=== PATIENT | male | born 1985 | race Caucasian/White ===

== ENCOUNTER 2022-04-04 11:02 | Emergency (ER) | payer MEDICAID, SELFPAY ==
[2022-04-04 11:09] VITALS: BP 128/86; PULSE 84; RESP 18; TEMP 36.9; O2SAT 98
--- OUTSIDE RECORDS SUMMARY | 2022-04-04 11:09 | XMS_ITS ---
Author Name KayodeFelton perea Address [address], [place] [id number] Organization [facility] Address [address], [place] [id number] Care Team Providers Care [employer] Technician Name Role Phone Felton Headley Unavailable [phone] PROBLEMS Type Condition ICD9-CM Code DCP77-VL Code Onset Dates Condition Status SNOMED Code Problem Gall stones K80.20 Active 510047580 Problem Tobacco use Z72.0 Active 383331073 Problem RUQ abdominal pain R10.11 Active [id number] ALLERGIES No Known Allergies ENCOUNTERS Encounter Location Date Diagnosis [facility] Occupational Health Department [address] [place] [id number] Aug, [facility] [address], [place] [id number] Aug, Encounter for screening laboratory testing for COVID-19 virus Z20.822 and Viral syndrome B34.9 [facility] [address], [place] [id number] Jul, [facility] [address] [facility] [address] [place] [id number] June, [facility] [address] [place] [id number] May, [facility] [address] [place] [id number] Apr, Biliary colic K80.50 [facility] [address], [place] [id number] Apr, RUQ abdominal pain R10.11 [facility] [address] [place] [id number] Apr, RUQ abdominal pain R10.11 [facility] [address] [id number] Feb, [facility] [address] [place] [id number] Jan, Encounter for screening laboratory testing for COVID-19 virus Z20.822 [facility] [address] [place] [id number] Dec, [facility] [address] [id number] Aug, [facility] [address] [id number] Aug, RUQ abdominal pain R10.11 ; Gall stones K80.20 ; Tobacco use Z72.0 and Screening for STD (sexually transmitted disease) Z11.3 [facility] [address] [id number] Jul, Biliary colic K80.[address] [id number] Jul, Tobacco use Z72.0 ; Gall stones K80.20 ; RUQ abdominal pain R10.11 and Screening for cardiovascular condition Z13.[address] [id number] Jul, 2020 Gall stones K80.20 and RUQ abdominal pain R10.11 IMMUNIZATIONS No Known Immunizations SOCIAL HISTORY Qualifiers Date Former Smoker REASON FOR REFERRAL FUNCTIONAL STATUS PLAN OF CARE Activity Details VITAL SIGNS Height 72 in 2021-08-15 Height 72 in 2021-05-07 Height 72 in 2021-04-25 Height 72 in 2020-09-05 Height 72 in 2020-07-31 Height 72 in 2020-07-26 Weight 210 lbs 2021-08-15 Weight 210.2 lbs 2021-05-07 Weight 211.6 lbs 2021-04-25 Weight 188 lbs 2020-09-05 Weight 196 lbs 2020-07-31 Weight 196 lb 6 oz lbs 2020-07-26 Temperature 98.3 degrees Fahrenheit Temperature 97.8 degrees Fahrenheit Temperature 97.9 degrees Fahrenheit Heart Rate 81 /min 2021-08-15 Heart Rate 73 /min 2021-05-07 Heart Rate 69 /min 2021-04-25 Heart Rate 63 /min 2020-09-05 Heart Rate 67 /min 2020-07-31 Heart Rate 76 /min 2020-07-26 Oximetry 100 2021-08-15 Oximetry 96 2021-05-07 Oximetry 97 2021-04-25 Oximetry 96 2020-09-05 Oximetry 98 2020-07-31 Oximetry 97 2020-07-26 Respiratory Rate 18 /min 2021-08-15 BMI 28.48 kg/m2 2021-08-15 BMI 28.51 kg/m2 2021-05-07 BMI 28.69 kg/m2 2021-04-25 BMI 25.49 kg/m2 2020-09-05 BMI 26.58 kg/m2 2020-07-31 BMI 26.63 kg/m2 2020-07-26 Blood pressure systolic 144 mm Hg Blood pressure diastolic 85 mm Hg 2021-08 MEDICATIONS Medication Instructions Dosage Frequency Start Date End Date Duration Status IBU 400 MG Orally Three times a day 1 tablet with food or milk as needed 8h Not-Taking PROCEDURES Procedure Date Ordered Result Body Site CORONAVIRUS AG [place] August 15, 2021 [facility] [place] [facility] OUT PT CLINIC COLLECTION FOR SARS COV J shanice 2021 SHAWN -PHONE E/M PHYS/QHP 5-10 MIN Jan 15, 2021 RESULTS Name Result Date Reference Range CBC, WITH AUTO DIFF 2021-08-15 WBC 9.3 4.8-10.8 RBC 5.58 4.70-6.10 HGB 16.5 14.0-18.0 HCT 49.4 42.0-52.0 MCV 88.5 80.0-94.0 MCH 29.6 27.0-31.0 MCHC 33.4 32.0-37.0 RDW-CV 12.3 11.5-14.5 PLT 225 130-400 MPV 10.2 7.4-10.4 NE% 67.9 42.2-75.2 LY% 19.6 20.5-51.1 MO% 11.4 1.7-9.3 EO% 0.5 0.9-2.9 BA% 0.3 0.0-0.8 NE# 6.3 1.4-6.5 LY# 1.8 1.2-3.4 MO# 1.1 0.1-0.6 EO# 0.1 0.0-0.2 BA# 0.0 0.0-0.2 COMPREHENSIVE METABOLIC PROFILE 6 SODIUM 136 134-143 POTASSIUM 3.9 3.5-5.1 CHLORIDE 99 98-111 CO2 27 22-32 CALCIUM 9.1 8.9-10.3 GLUCOSE 116 74-106 BUN 14 8-26 CREATININE 0.95 0.61-1.24 TOTAL BILIRUBIN 0.8 0.3-1.2 TOTAL PROTEIN 8.4 6.5-8.1 ALBUMIN 4.6 3.5-5.0 ALKALINE PHOS 68 38-130 AST 29 15-41 ALT 37 17-63 A/GAP 10.0 3.0-12.0 B/CR 14.7 8.0-20.0 OSMOLARITY 273 275-295 GLOBULIN 3.8 2.3-3.5 A/G 1.2 1.0-2.5 HIV 1/0/2 ANTIBODIES 2021-08-15 HIV1/O/2 Abs,P24Ag NON-REACTIVE NON-REACT NORM COVID 19 (POS) SOFIA2 SARS Ag Flu A Flu B SARS Negative COVID 19 (POS) BinaxNow Ag Card 6 SARS-CoV-2 negative US ABDOMINAL LIMITED 2020-12-15 CULTURE STREP GR A 2020-10-02 STREP SCREEN GR A with REFLE X CULTURE 2020-10-02 STREP A Ag NEGATIVE NEGATIVE COVID 19 LR PCR ([employer]) 2020-10-02 SARS-CoV-2, PCR NOT DETECTED NOT DETECTED SARS-CoV-2 Comment Negative results jame uld not be used as the sole basis for diagnosis, treatment, or other patient management decisions. False negatives should be considered in the context of recent exposures and the presence of clinical signs and symptoms consistent with COVID-19. False negatives may also occur in patients whose viral load is below the limit of detection. An individual without symptoms of COVID-19 and who is not shedding the virus would be expected to have a negative result. CHLAMYDIA/GC by PCR URINE 2020-09-05 C.trach by PCR NOT DETECTED NOT DETECTED N. gonorrhoeae PCR NOT DETECTED NOT DETEC OLGA ATWOOD The patient should n ot have urinated for at least 1 hour prior to specimen collection. Female patients should not cleanse the labial area prior to collecting the specimen. Male patients should not cleanse the tip of the penis prior to collecting the specimen. HIV 1/0/2 ANTIBODIES 2020-09-05 HIV1/O/2 Abs,P24Ag NON-REACTIVE NON-REACT NORM SYPHILIS 2020-09-05 SYPHILIS NON-REACTIVE NON-REACTIVE HEPATITIS PANEL (Hep C Ab, B Ag, B Core IGM, A IGM) 2020-09-05 HEP A IGM ANTIBODY NON-REACTIVE NON-REACT NORM HEP B CORE IgM Ab NON-REACTIVE NON-REACTI VE HEP C IgG ANTIBODY NON-REACTIVE NON-REACT NORM HEP B SURFACE AG NON-REACTIVE NON-REACTIV E CBC, WITH AUTO DIFF 2020-07-16 WBC 6.5 4.8-10.8 RBC 4.81 4.70-6.10 HGB 14.4 14.0-18.0 HCT 43.6 42.0-52.0 MCV 90.6 80.0-94.0 MCH 29.9 27.0-31.0 MCHC 33.0 32.0-37.0 RDW-CV 12.8 11.5-14.5 PLT 256 130-400 MPV 10.5 7.4-10.4 NE% 46.3 42.2-75.2 LY% 38.5 20.5-51.1 MO% 9.9 1.7-9.3 EO% 4.5 0.9-2.9 BA% 0.6 0.0-0.8 NE# 3.0 1.4-6.5 LY# 2.5 1.2-3.4 MO# 0.6 0.1-0.6 EO# 0.3 0.0-0.2 BA# 0.0 0.0-0.2 COMPREHENSIVE METABOLIC PROFILE 6 SODIUM 138 134-143 POTASSIUM 3.7 3.5-5.1 CHLORIDE 104 98-111 CO2 26 22-32 CALCIUM 8.8 8.9-10.3 BUN 14 8-26 CREATININE 0.81 0.61-1.24 TOTAL BILIRUBIN 0.4 0.3-1.2 TOTAL PROTEIN 7.0 6.5-8.1 ALBUMIN 4.2 3.5-5.0 ALKALINE PHOS 51 32-92 AST 18 15-41 ALT 15 17-63 A/GAP 8.0 3.0-12.0 B/CR 17.3 8.0-20.0 OSMOLARITY 277 275-295 GLOBULIN 2.8 2.3-3.5 A/G 1.5 1.0-2.5 LIPASE 2020-07-16 LIPASE 34 18-51 REASON FOR VISIT Blood Work, symptomatic, getting sick every 4 weeks, call [phone], Point of Service COVID 19 Screening, pt states he has sinus pain and headache, pt states he also has nausea and vomitting , pt states his lymph nodes also feel swollen , pt states it has been ongoing for about a year. , NS #1, PC ear clogged/eye twitching, lap. poss. open cholecystectomy, consult for surgery 07/12, Cancel surgery, GS LAPROSCOPIC POSS OPEN CHOLECYSTECTOMY, Reschedule surgery, consult cholelithiasis, referral, PC - internal pain by ribs/hx of gallbladder stones, left msg with service, shawn covid test, Point ofService COVID 19 Screening, results, [facility], LUIS- Patient with ER visit for right upper quadrant pain and was found to have gallstones on ultrasound, so thought to be biliary colic. Labs normal, PC - gallbladder stones, lab/US results - 1calldmitry, TRANSCRIPTION Insurance Providers Health Insurance Type Health Plan Insurance Address Health Plan Insurance Phone Health Plan Insurance Name Health Plan Coverage Dates Member ID Patient Relationship to Subscriber Patient Address Patient Phone Patient Name Patient Date of Subscriber ID Subscriber Name Subscriber Date of Group No [place] [address] [facility] [id number] [place] self Marty Greenwoo d [id number] [place] [address] [facility] [id number] [place] self Marty Greenwoo d [id number] RHC [place]AH[place] ATTN CLAIMS [address] [facility] [id number] RHC AMBETTER barbara salazar [id number]
--- NOTE | 2022-04-04 11:15 | DI.RAD_ITS ---
Exam(s) XR LUMBAR SPINE COMPLETE EXAM: XR LUMBAR SPINE COMPLETE CLINICAL HISTORY: Low Back pain. TECHNIQUE: 2D digital imaging was performed of the lumbar spine. Five images were obtained. AP, la teral, right oblique, left oblique and L5-S1 spot views were obtained. COMPARISON: No exams were available for comparison FINDINGS: BONES: No fracture or destructive lesion. Vertebral bodies are unremarkable. No facet hypertrophy nathanael ntified. DISKS: Intervertebral disc spaces are maintained. ALIGNMENT: Lumbar spinal alignment is within normal limits. No spondylolysis or spondylolisthesis. SOFT TISSUE: Normal. IMPRESSION: Unremarkable radiographs of the lumbar spine. DATA REPOSITORY: RADIATION DOSE DELIVERED:
--- NOTE | 2022-04-04 11:28 | W.ED.GENAD ---
Discharge Plan Disposition Patient Disposition: Home Discharge Details Clinical Impression: Low back strain Primary Care Provider: None,None ED Provider: Jennifer Hernandez Home Meds and New Rx's Prescriptions: No Action No Known Home Meds Discharge Instructions Instructions: Low Back Strain (ED) Additional Instructions: X-rays are within normal limits. I do suspect that you have a musculoskeletal strain. A referral for physical therapy has been given for you you may call to make an appointment. Alternate ice and heat. You may also apply topical medication such as Biofreeze or similar or IcyHot or get lidocaine patches which you can obtain [id number]. You are given 1 here today. Follow up with primary care provider in 3-5 days. Return to ED sooner if any worsening or concerns. Increase oral fluids. You are placed on a care management list to assist you with establishing care with a primary care provider. Please take Tylenol or Ibuprofen with food every 4-6 hours as needed for pain and swelling. Stand Alone Forms: Physical Therapy Referral, Work Release Medical Decision Making 36-year-old male presents to the ER with a chief complaint of lower left lumbar pain which has worsened since squatting down yesterday. He denies any radiation, no loss of bowel or bladder control, denies any saddle anesthesia or numbness to his groin area. He did take 400 of ibuprofen prior to arrival. He denies any dysuria or problems urinating. 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 He denies any other associated symptoms or history. Positive straight leg test on the left, patient does have a stiff gait, left-sided paraspinous tenderness with palpation no midline tenderness crepitus or step-off. Lumbar x-rays ordered and a lidocaine patch. Patient is in agreement with the plan. No red flags such as saddle anesthesia, loss of bowel or bladder control or any other concerns. X-rays are within normal limits. Will refer patient to physical therapy and PCP for further evaluation and work-up if needed. Will discuss home care rest ice, alternate with heat lidocaine patches Tylenol ibuprofen. Will discuss red flags for return. Discussed home care with patient who verbalized understanding. This text was generated using [employer] system, please disregard any oddities of phrase or misspellings. Imaging Data Radiologic Study: Imaging: X-Ray Radiologist's impression: EXAM:? XR LUMBAR SPINE COMPLETE CLINICAL HISTORY: ? Low Back pain.? TECHNIQUE:? 2D digital imaging was performed of the lumbar spine.? Five images were obtained.? AP, lateral, right oblique, left oblique and L5-S1 spot views were obtained. COMPARISON:? No exams were available for comparison FINDINGS: BONES: No fracture or destructive lesion. Vertebral bodies are unremarkable. No facet hypertrophy identified. DISKS: Intervertebral disc spaces are maintained. ALIGNMENT: Lumbar spinal alignment is within normal limits. No spondylolysis or spondylolisthesis. SOFT TISSUE: Normal. IMPRESSION: Unremarkable radiographs of the lumbar spine. HPI General Mode of arrival: ambulatory. Date/Time Provider Initiated Documentation: 04/04/22 11:19. Limitations to Documentation: no limitations. Information obtained by: patient, RN notes reviewed and old records reviewed. HPI Narrative: 36-year-old male presents to the ER with a chief complaint of lower left lumbar pain which has worsened since squatting down yesterday. He denies any radiation, no loss of bowel or bladder control, denies any saddle anesthesia or numbness to his groin area. He did take 400 of ibuprofen prior to arrival. He denies any dysuria or problems urinating. 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 He denies any other associated symptoms or history. Related Data Home Medications Medication Instructions Recorded Confirmed Unknown [No Known Home Meds] 04/04/22 04/04/22 Allergies Allergy/AdvReac Type Severity Reaction Status Date / Time No Known Allergies Allergy Unverified 04/04/22 11:10 General Stated Complaint: Nk/Back Pain LETICIA: 4 Review of Systems Musculoskeletal Musculoskeletal: Denies abnormal gait and Reports back pain (Reports worse in the a.m. after waking) Neurologic Neurologic: Denies abnormal gait PFSH All Active Problems (Updated 04/04/22 @ 12:16 by Jennifer Hernandez NP) Low back strain (Acute) Social History Smoking/Tobacco Use Status: Never Smoking risk assessment performed?: Yes Alcohol Intake: never Drug use: Daily Substance use type: marijuana Exam Const General: cooperative, healthy appearing, comfortable, well developed and well groomed Nutritional Appearance: average body habitus Orientation: alert, awake and oriented x3 Back/Spine/Pelvis Back: no CVA tenderness Cervical Spine: normal cervical lordosis, cervical ROM normal, No cervical spinal tenderness and No step off deformity Thoracic/Lumbar Spine: thoracic and lumbar spine normal to inspection, paraspinal tenderness (left), thoraco-lumbar ROM limited, No thoracic spinal tenderness, No lumbar spinal tenderness and straight leg raise positive (left side) Pelvis: no pain with anterior-posterior compression and no pain with lateral compression Course Vital Signs Vital signs: Vital Signs Temperature 36.9 C 04/04/22 11:09 Pulse 84 04/04/22 11:09 Respiratory Rate 18 04/04/22 11:09 Blood Pressure 128/86 04/04/22 11:09 Pulse Oximetry 98 04/04/22 11:09 Temperature 36.9 C 04/04/22 11:09 Temperature Source Oral 04/04/22 11:09 Pulse 84 04/04/22 11:09 Respiratory Rate 18 04/04/22 11:09 Respiratory Effort Normal, Non-Labored 04/04/22 11:09 Blood Pressure 128/86 04/04/22 11:09 Pulse Oximetry 98 04/04/22 11:09 Oxygen Delivery Method Room Air 04/04/22 11:09 Oxygen Flow Rate 0 04/04/22 11:09 Pain Level 4 04/04/22 11:12
[2022-04-04] MEDS: Lidocaine 5% Patch 1 PATCH TP (11:57)
--- NOTE | 2022-04-04 12:13 | NUR.NOTE ---
Nursing Note: Referral given to Care Management needs PCP, back pain follow up, establish care/ 2 to 3 weeks.
== END 2022-04-04 12:37 | disposition home or self-care (01) ==
PROVIDERS: Emergency Provider Registered Nurse Emergency
DX: S39.012A Strain of muscle, fascia and tendon of lower back, initial encounter (principal); X50.9XXA Other and unspecified overexertion or strenuous movements or postures, initial encounter
CPT/HCPCS: 99283; 72110

== ENCOUNTER 2022-06-24 13:17 | Outpatient (REF) | payer MEDICAID, SELFPAY ==
[2022-06-25 10:20] LABS: Hepatitis B Surface Ag Negative (Negative)
[2022-06-25 10:46] LABS: Hepatitis C Ab w Rflx HCV PCR Negative (Negative)
[2022-06-25 10:54] LABS: HIV-1/2 Ag & Ab Screen Negative (Negative)
[2022-06-25 11:08] LABS: Syphilis Serology (RPR) Negative (Negative)
[2022-06-25 14:03] LABS: Chlamydia Result Positive (Negative); GC Result Negative (Negative)
== END 2022-06-24 13:18 | disposition home or self-care (01) ==
LOC: LBN 13:17
PROVIDERS: Visit Provider Nurse Practitioner Family
DX: Z11.3 Encounter for screening for infections with a predominantly sexual mode of transmission (principal); Z11.4 Encounter for screening for human immunodeficiency virus [HIV]; Z11.59 Encounter for screening for other viral diseases
CPT/HCPCS: 86803; 87340; 87389; 87491; 87591; 86592